=== PATIENT | male | born 1955 | race Caucasian/White ===

== ENCOUNTER 2018-10-23 21:43 | Inpatient (IN) | payer MEDICARE, BC ==
[~2018-10-23] VITALS: Ht 172.7 cm; Wt 97.5 kg
[2018-10-23] MEDS ORDERED: OMEPRAZOLE20 M1 PO (22:15)
[2018-10-23] MEDS ORDERED: FLOMAX0.4 MG PO (22:16)
[2018-10-23] MEDS ORDERED: ULTRAM50 MG PO (22:16)
[2018-10-23] MEDS ORDERED: K-TAB10 MEQ PO (22:17)
[2018-10-23] MEDS ORDERED: ULORIC40 MG PO (22:18)
[2018-10-23] MEDS ORDERED: DULCOLAX5 MG PO (22:18)
[2018-10-23] MEDS ORDERED: CENTRUM MEN'S1 EACH PO (22:19)
[2018-10-23] MEDS ORDERED: ACETAMINOPHEN500 M1 PO (22:19)
[2018-10-23] MEDS ORDERED: FIBER-LAX625 MG PO (22:20)
[2018-10-23 23:20] VITALS: BP 126/89
--- NOTE | 2018-10-23 23:24 | NUR ---
A/A DENIES NEEDS @ PRESENT,CON'T TO MONITOR.
--- NOTE | 2018-10-23 23:52 | NUR ---
MOMJOSEY CALLED AND INFORMED THERE IS NO TELEMETRY AVAILABLE FOR THIS PT.
[2018-10-24] MEDS ORDERED: TYLENOL PM1 TAB PO (00:13)
[2018-10-24] MEDS ORDERED: FUROSEMIDE20 MG PO (00:16)
[2018-10-24] MEDS ORDERED: DULCOLAX5 MG PO (01:17)
[2018-10-24] MEDS ORDERED: FIBER-LAX625 MG PO (01:17)
[2018-10-24 02:11] VITALS: BP 140/100; BMI 32.7
--- NOTE | 2018-10-24 02:50 | NUR ---
RECIEVED TO FLOOR ACCOMPANIED BY STAFF AND PTs . A&O X 4. PT REPORTS HE HAS ALS, UNABLE TO MOVE EXTREMETIES, BUT HAS LITTLE MOVEMENT IN NECK AND SHOULDERS. PT REPORTS HE IS CONTINNENT AND USES A URINAL AT HOME, IS HIS PRIMARY CARE GIVE. EDEMA TO LOWER EXTREMETIES, 3+. ABDOMEN HAS A YELLOW TINT. SCDs APPLIED, WILBERT MAT IN USE. NS INVUSING AT 125 IN RIGHT WRIST WITHOUT DIFFICULTY. DENIES PAIN AT THIS TIME, WILL CONTINUE TO MONITOR.
[2018-10-24 04:43] VITALS: BP 143/98
[2018-10-24 05:45] LABS: BASOPHILS 0.2 % (0-2); HEMOGLOBIN 14.1 g/dL (13.5-17.5); IMMATURE GRANULOCYTES 0.3 % (0-5); MCH 31.8 pg (26.0-34.0); MCHC 35.3 g/dL (31.0-37.0); MCV 90.1 fL (80.0-100.0); MEAN PLATELET VOLUME 10.2 fL (7.4-10.4); NEUTROPHILS 60.5 % (40-80); PLATELET COUNT 274 10x3/uL (130-400); RBC 4.44 10x6/uL (4.20-6.10); RDW 15.1 % (11.5-14.5)
[2018-10-24 06:05] LABS: ALBUMIN 3.2 g/dL (3.4-5.0); ALKALINE PHOSPHATASE 298 U/L (46-116); ALT (SGPT) 547 U/L (10-68); AMYLASE - SERUM 28 U/L (25-115); BILIRUBIN - TOTAL 2.42 mg/dL (0.2-1.3); CALC OSMOLALITY 278 mosm/kg (275-300); CALCIUM 8.9 mg/dL (8.5-10.1); CARBON DIOXIDE 27.9 mmol/L (21.0-32.0); CHLORIDE - SERUM 101 mmol/L (98-107); CREATININE - SERUM 0.3 mg/dL (0.6-1.3); GLUCOSE 101 mg/dL (74-106); LIPASE 133 U/L (73-393); MAGNESIUM - SERUM 1.8 mg/dL (1.8-2.4); PHOSPHOROUS 3.7 mg/dL (2.5-4.9); POTASSIUM - SERUM 3.2 mmol/L (3.5-5.1); PROTEIN - SERUM 6.9 g/dL (6.4-8.2); SODIUM 141 mmol/L (136-145); UREA NITROGEN 7 mg/dL (7-18); eGFR NON AFRICAN AMERICAN > 90 mL/min (90-120)
--- NOTE | 2018-10-24 07:42 | NUR ---
PT RESTING IN BED. NO SIGNS OF DISTRESS. IV TO RIGHT HAND PATENT NO REDNESS OR TENDERNESS. ALL FALL PRECAUTIONS IN PLACE. DENIES ANY FURTHER NEED AT THIS TIME, CALL LIGHT IN REACH. BED LOW POSITION. AT BEDSIDE.
[2018-10-24 08:46] VITALS: BP 136/98
[2018-10-24 12:44] VITALS: BMI 32.6
--- NOTE | 2018-10-24 14:22 | MORECARE ---
CASE MANAGEMENT DISCHARGE SUMMARY PATIENT: UMBERTO KEEN UNIT: [id number] ADM DATE: 10/23/18 AGE: 62 : 55 SEX: M ROOM/BED: D.2227 AUTHOR: SULMA,DOC PHYSICIAN: REFERRING PHYSICIAN: SUJIT LAZO MD DATE OF SERVICE: 10/24/18 Discharge Plan Patient Name: UMBERTO KEEN Facility: [facility]:[place] : 1955 Planned Disposition: Home Anticipated Discharge Date: Discharge Date: Expected LOS: Initial Reviewer: [email or web address] Initial Review Date: 10/24/2018 Generated: 10/24/18 3:22 pm Comments DCP- Discharge Planning Updated by [email or web address]: Gifty Richards on 10/24/18 1:[address] Patient Name: UMBERTO KEEN Admission Status: ER Accout number: [id number] Admission Date: 10-23-2018 : 1955 Admission Diagnosis: Attending: SUJIT ROBBINS Current LOS: 1 Anticipated DC Date: Planned Disposition: Home Primary Insurance: MEDICARE A & B Discharge Planning Comments: CM met with patient at bedside after explaining CM role and obtaining verbal consent. CM discussed availability / needs of home health and medical equipment. HAS MEDICAL EQUIPMENT AT HOME AND HIS AND A PERSONAL PROGRAM DIRECTOR/TRAFFIC DIRECTOR CARES FOR HIM. DENIES NEED OF ANY OTHER SERVICE AT THIS TIME.CM TO FOLLOW AND ASSIST. Communications Scientist: Gifty Richards DCPIA - Discharge Planning Initial Assessment Updated by [email or web address]: Gifty Richards on 10/24/18 2:20 pm * Is the patient Alert and Oriented? Yes * PCP SAYER * [facility] IN [place] * Preadmission Environment Home with Family * ADLs Total Dependent * Other Equipment TRILOGY, COUGH ASSIST,LIFT, WC, BED, SHOWER CHAIR. * List name and contact numbers for known caregivers / representatives who currently or will assist patient after discharge: TOBY SOLIS, * Verbal permission to speak to the caregivers and representatives has been obtained from the patient. Yes * Please name any agencies selected above. HAS PRIVATE PROGRAM DIRECTOR/TRAFFIC DIRECTOR * Additional services required to return to the preadmission environment? No * Can the patient safely return to the preadmission environment? Yes * Has this patient been hospitalized within the prior 30 days at any hospital? No Patient Name: UMBERTO KEEN Page [id number] at 1422 All edits/amendments must be made on the electronic document DICTATION DATE: 10/24/181421 INTERNET MARKETING COORDINATOR: ALIX 10/24/181421 RPT#: [id number] DC DATE: STATUS: ADM IN [facility] [address] [place] [address] END OF REPORT
[2018-10-24 15:09] LABS: ALBUMIN 3.3 g/dL (3.4-5.0); BILIRUBIN - DIRECT 1.26 mg/dL (0.00-0.30); BILIRUBIN - INDIRECT 0.78 mg/dL (0.00-1.00); BILIRUBIN - TOTAL 2.04 mg/dL (0.2-1.3); PROTEIN - SERUM 6.8 g/dL (6.4-8.2)
[2018-10-24 16:51] VITALS: BP 143/107
--- NOTE | 2018-10-24 16:54 | MORECARE ---
CASE MANAGEMENT DISCHARGE SUMMARY PATIENT: UMBERTO KEEN UNIT: [id number] ADM DATE: 10/23/18 AGE: 62 : 55 SEX: M ROOM/BED: D.2227 AUTHOR: SULMADOC PHYSICIAN: REFERRING PHYSICIAN: SUJIT LAZO MD DATE OF SERVICE: 10/24/18 Discharge Plan Patient Name: UMBERTO KEEN Facility: [facility]:[place] : 1955 Planned Disposition: Home Anticipated Discharge Date: Discharge Date: Expected LOS: Initial Reviewer: [id number] Initial Review Date: 10/24/2018 Generated: 10/24/18 5:53 pm Comments DCP- Discharge Planning Updated by [email or web address]: Gifty Richards on 10/24/18 3:[address] Patient Name: UMBERTO KEEN Admission Status: ER Accout number: [id number] Admission Date: 10-23-2018 : 1955 Admission Diagnosis: Attending: SUJIT ROBBINS Current LOS: 1 Anticipated DC Date: Planned Disposition: Home Primary Insurance: MEDICARE A & B Discharge Planning Comments: CM met with patient at bedside after explaining CM role and obtaining verbal consent. CM discussed availability / needs of home health and medical equipment. HAS MEDICAL EQUIPMENT AT HOME AND HIS AND A PERSONAL STRAIGHT SLICING MACHINE OPERATOR CARES FOR HIM. DENIES NEED OF ANY OTHER SERVICE AT THIS TIME.CM TO FOLLOW AND ASSIST. Maintenance Mechanic [place]: Gifty Richards Appended by Gifty Richards on 10/24/2018 16:46 CDT: PATIENT AND FAMILY STATES IF HE NEEDS SURGERY HE WOULD LIKE TO TRANSFER TO [facility] WHERE HIS SPECIALTY DOCTORS ARE AT. I LET THE PATIENT KNOW WE COULD TELL MORE AFTER HE HAS BEEN SEEN BY SURGERY AND SURGERY RECOMENDATIONS. I SPOKE WITH NURSE ALSO. CM WILL FOLLOW AND ASSIST. DCPIA - Discharge Planning Initial Assessment Updated by [email or web address]: Gifty Richards on 10/24/18 2:20 pm * Is the patient Alert and Oriented? Yes * PCP SAYER * [facility] IN [place] * Preadmission Environment Home with Family * ADLs Total Dependent * Other Equipment TRILOGY, COUGH ASSIST,LIFT, WC, BED, SHOWER CHAIR. * List name and contact numbers for known caregivers / representatives who currently or will assist patient after discharge: TOBY SOLIS, * Verbal permission to speak to the caregivers and representatives has been obtained from the patient. Yes * Please name any agencies selected above. HAS PRIVATE STRAIGHT SLICING MACHINE OPERATOR * Additional services required to return to the preadmission environment? No * Can the patient safely return to the preadmission environment? Yes * Has this patient been hospitalized within the prior 30 days at any hospital? No Last DP export: 10/24/18 1:22 p Patient Name: UMBERTO KEEN Page [id number] at 1654 All edits/amendments must be made on the electronic document DICTATION DATE: 10/24/181652 CRUSHER MACHINE OPERATOR: ALIX 10/24/181652 RPT#: [id number] DC DATE: STATUS: ADM IN [facility] [address] [place] [address] END OF REPORT
--- NOTE | 2018-10-24 20:00 | NUR ---
A/O WITH NO SIGNS OF ACUTE DISRESS NOTED. IV TO THE RT HAND WITH NO SWELLING OR REDNESS NOTED. TRILOGY MACHINE IN USE AND SWELLING IN FEET. DENIES PAIN OR OTHER NEEDS AT THIS TIME. CONTINUE PLAN OF CARE.
[2018-10-25 01:03] VITALS: BP 121/86
[2018-10-25 05:00] VITALS: BP 138/96
[2018-10-25 05:19] LABS: CALC OSMOLALITY 283 mosm/kg (275-300); CALCIUM 8.4 mg/dL (8.5-10.1); CARBON DIOXIDE 23.7 mmol/L (21.0-32.0); CHLORIDE - SERUM 107 mmol/L (98-107); CREATININE - SERUM 0.3 mg/dL (0.6-1.3); GLUCOSE 78 mg/dL (74-106); MAGNESIUM - SERUM 1.8 mg/dL (1.8-2.4); PHOSPHOROUS 3.9 mg/dL (2.5-4.9); POTASSIUM - SERUM 3.5 mmol/L (3.5-5.1); SODIUM 144 mmol/L (136-145); UREA NITROGEN 6 mg/dL (7-18); eGFR NON AFRICAN AMERICAN > 90 mL/min (90-120)
[2018-10-25 06:34] LABS: BASOPHILS 0.3 % (0-2); EOSINOPHILS 3.3 % (0-7); HEMATOCRIT 38.5 % (42.0-54.0); HEMOGLOBIN 13.4 g/dL (13.5-17.5); IMMATURE GRANULOCYTES 0.3 % (0-5); LYMPHOCYTES 20.9 % (15-50); MCH 31.9 pg (26.0-34.0); MCHC 34.8 g/dL (31.0-37.0); MCV 91.7 fL (80.0-100.0); MEAN PLATELET VOLUME 10.4 fL (7.4-10.4); MONOCYTES 13.1 % (2-11); NEUTROPHILS 62.1 % (40-80); PLATELET COUNT 260 10x3/uL (130-400); RDW 15.3 % (11.5-14.5); WBC 10.6 10x3/uL (4.8-10.8)
[2018-10-25 07:56] LABS: ALBUMIN 3.2 g/dL (3.4-5.0); BILIRUBIN - DIRECT 0.91 mg/dL (0.00-0.30); BILIRUBIN - INDIRECT 0.67 mg/dL (0.00-1.00); BILIRUBIN - TOTAL 1.58 mg/dL (0.2-1.3); PROTEIN - SERUM 6.6 g/dL (6.4-8.2)
--- NOTE | 2018-10-25 08:45 | NUR ---
PATIENT IN BED WITH IV INTACT. NO COMPLAINTS OR SIGNS OF DISTRESS. TRILOGY ON AND WORKING. FAMILY AT BEDSIDE. BSCDS ON AND WORKING. CALL LIGHT WITHIN REACH.
[2018-10-25 09:26] VITALS: BP 153/106
[2018-10-25 12:48] VITALS: BP 150/92
--- NOTE | 2018-10-25 18:45 | NUR ---
PATIENT IN BED WITH EYES OPEN. NO COMPLAINTS OR SIGNS OF DISTRESS. IV INTACT. FAMILY AND FRIENDS AT BEDSIDE. BSCDS ON AND WORKING. CALL LIGHT WITHIN REACH.
[2018-10-25 20:58] VITALS: BP 152/78; BP 155/96
--- NOTE | 2018-10-25 21:00 | NUR ---
A/O WITH NO SIGNS OF ACUTE DISTRESS NOTED. IV TO THE RIGHT HAND WITH NO REDNESS OR SWELLING NOTED. TRILOGY MACHINE IN USE. DENIES ANY NEEDS AT THIS TIME. AWAITING FOR BED AT [facility]. CONTINUE WITH PLAN OF CARE.
[2018-10-26 01:31] VITALS: BP 148/94
--- NOTE | 2018-10-26 05:32 | NUR ---
SLEPT THROUGH MOST OF THE NIGHT WITH NO PROLEMS. STILL AWAITING FOR TRANSFER CALL TO [facility]. CONTINUE WITH PLAN OF CARE.
[2018-10-26 05:54] VITALS: BP 148/97
[2018-10-26 06:48] LABS: BASOPHILS 0.2 % (0-2); EOSINOPHILS 2.5 % (0-7); HEMATOCRIT 37.9 % (42.0-54.0); HEMOGLOBIN 13.2 g/dL (13.5-17.5); IMMATURE GRANULOCYTES 0.2 % (0-5); LYMPHOCYTES 19.6 % (15-50); MCH 31.7 pg (26.0-34.0); MCHC 34.8 g/dL (31.0-37.0); MCV 90.9 fL (80.0-100.0); MEAN PLATELET VOLUME 10.4 fL (7.4-10.4); MONOCYTES 13.4 % (2-11); NEUTROPHILS 64.1 % (40-80); PLATELET COUNT 283 10x3/uL (130-400); RBC 4.17 10x6/uL (4.20-6.10); RDW 15.2 % (11.5-14.5); WBC 9.1 10x3/uL (4.8-10.8)
[2018-10-26 07:09] LABS: CALCIUM 8.7 mg/dL (8.5-10.1); CARBON DIOXIDE 22.9 mmol/L (21.0-32.0); CHLORIDE - SERUM 103 mmol/L (98-107); GLUCOSE 71 mg/dL (74-106); MAGNESIUM - SERUM 1.8 mg/dL (1.8-2.4); POTASSIUM - SERUM 3.1 mmol/L (3.5-5.1); SODIUM 141 mmol/L (136-145)
[2018-10-26 07:10] LABS: CALC OSMOLALITY 275 mosm/kg (275-300); CREATININE - SERUM 0.2 mg/dL (0.6-1.3); PHOSPHOROUS 2.7 mg/dL (2.5-4.9); UREA NITROGEN 3 mg/dL (7-18); eGFR NON AFRICAN AMERICAN > 90 mL/min (90-120)
--- NOTE | 2018-10-26 08:30 | NUR ---
PATIENT IN BED WITH NO COMPLAINTS OR SIGNS OF DISTRESS. FAMILY AT BEDSIDE. IV INTACT. ASSESSMENT COMPLETE, VS STABLE. CALL LIGHT WITHIN REACH.
[2018-10-26 09:28] VITALS: BP 145/98
[2018-10-26 10:25] LABS: BILIRUBIN - DIRECT 4.66 mg/dL (0.00-0.30); BILIRUBIN - INDIRECT 1.44 mg/dL (0.00-1.00); BILIRUBIN - TOTAL 6.1 mg/dL (0.2-1.3)
--- NOTE | 2018-10-26 12:30 | NUR ---
PATIENT IN BED WITH IV INTACT. NO COMPLAINTS OR SIGNS OF DISTRESS. FAMILY AT BEDSIDE. CALL LIGHT WITHIN REACH.
[2018-10-26 12:32] VITALS: BP 141/97
--- NOTE | 2018-10-26 12:36 | NUR ---
Nutrition follow-up: diet: low residue PO intake ~65% of last 2 meals Labs reviewed Wt: 214# RDN following.
[2018-10-26 13:34] LABS: ALKALINE PHOSPHATASE 295 U/L (46-116); ALT (SGPT) 457 U/L (10-68); BILIRUBIN - TOTAL 6.02 mg/dL (0.2-1.3); PROTEIN - SERUM 7.1 g/dL (6.4-8.2)
--- NOTE | 2018-10-26 14:50 | MORECARE ---
CASE MANAGEMENT DISCHARGE SUMMARY PATIENT: UMBERTO KEEN UNIT: [id number] ADM DATE: 10/23/18 AGE: 62 : 55 SEX: M ROOM/BED: D.2227 AUTHOR: SULMADOC PHYSICIAN: REFERRING PHYSICIAN: SUJIT LAZO MD DATE OF SERVICE: 10/26/18 Discharge Plan Patient Name: UMBERTO KEEN Facility: [facility]:[place] : 1955 Planned Disposition: Home Anticipated Discharge Date: Discharge Date: Expected LOS: Initial Reviewer: [email or web address] Initial Review Date: 10/24/2018 Generated: 10/26/18 3:49 pm Comments DCP- Discharge Planning Updated by [email or web address]: Gifty Richards on 10/26/18 1:[address] Patient Name: UMBERTO KEEN Admission Status: ER Accout number: [id number] Admission Date: 10-23-2018 : 1955 Admission Diagnosis: Attending: SUJIT ROBBINS Current LOS: 3 Anticipated DC Date: Planned Disposition: Home Primary Insurance: MEDICARE A & B Discharge Planning Comments: ACCEPTED AT [facility], WAITING FOR BED. Campus Receptionist: Gifty Richards DCP- Discharge Planning Updated by [email or web address]: Gifty Richards on 10/24/18 3:[address] Patient Name: UMBERTO KEEN Admission Status: ER Accout number: [id number] Admission Date: 10-23-2018 : 1955 Admission Diagnosis: Attending: SUJIT ROBBINS Current LOS: 1 Anticipated DC Date: Planned Disposition: Home Primary Insurance: MEDICARE A & B Discharge Planning Comments: CM met with patient at bedside after explaining CM role and obtaining verbal consent. CM discussed availability / needs of home health and medical equipment. HAS MEDICAL EQUIPMENT AT HOME AND HIS AND A PERSONAL HEALTH ANALYST CARES FOR HIM. DENIES NEED OF ANY OTHER SERVICE AT THIS TIME.CM TO FOLLOW AND ASSIST. Campus Receptionist: Gifty Richards Appended by Gifty Richards on 10/24/2018 16:46 CDT: PATIENT AND FAMILY STATES IF HE NEEDS SURGERY HE WOULD LIKE TO TRANSFER TO [facility] WHERE HIS SPECIALTY DOCTORS ARE AT. I LET THE PATIENT KNOW WE COULD TELL MORE AFTER HE HAS BEEN SEEN BY SURGERY AND SURGERY RECOMENDATIONS. I SPOKE WITH NURSE ALSO. CM WILL FOLLOW AND ASSIST. DCPIA - Discharge Planning Initial Assessment Updated by [email or web address]: Gifty Richards on 10/24/18 2:20 pm * Is the patient Alert and Oriented? Yes * PCP SAYER * [facility]acy [facility] IN [place] * Preadmission Environment Home with Family * ADLs Total Dependent * Other Equipment TRILOGY, COUGH ASSIST,LIFT, WC, BED, SHOWER CHAIR. * List name and contact numbers for known caregivers / representatives who currently or will assist patient after discharge: WILL, TOBY, * Verbal permission to speak to the caregivers and representatives has been obtained from the patient. Yes * Please name any agencies selected above. HAS PRIVATE HEALTH ANALYST * Additional services required to return to the preadmission environment? No * Can the patient safely return to the preadmission environment? Yes * Has this patient been hospitalized within the prior 30 days at any hospital? No Last DP export: 10/24/18 3:54 p Patient Name: UMBERTO KEEN Page [id number] at 1450 All edits/amendments must be made on the electronic document DICTATION DATE: 10/26/181448 CONSULTANT EDUCATION: ALIX 10/26/181448 RPT#: [id number] DC DATE: STATUS: ADM IN [facility] [address] [place] [address] END OF REPORT
[2018-10-26 15:17] LABS: ALBUMIN 3.2 g/dL (3.4-5.0); ALKALINE PHOSPHATASE 321 U/L (46-116); ALT (SGPT) 452 U/L (10-68); BILIRUBIN - TOTAL 3.48 mg/dL (0.2-1.3); CALC OSMOLALITY 279 mosm/kg (275-300); CALCIUM 8.4 mg/dL (8.5-10.1); CARBON DIOXIDE 22.3 mmol/L (21.0-32.0); CHLORIDE - SERUM 104 mmol/L (98-107); GLUCOSE 104 mg/dL (74-106); POTASSIUM - SERUM 3.3 mmol/L (3.5-5.1); PROTEIN - SERUM 6.9 g/dL (6.4-8.2); SODIUM 142 mmol/L (136-145); UREA NITROGEN 3 mg/dL (7-18)
[2018-10-26 15:24] LABS: CREATININE - SERUM 0.3 mg/dL (0.6-1.3); eGFR NON AFRICAN AMERICAN > 90 mL/min (90-120)
--- NOTE | 2018-10-26 15:30 | NUR ---
PATIENT IN BED WITH IV INTACT. TRIOLOGY ON. FAMILY AT BEDSIDE. BSCDS ON AND WORKING. CALL LIGHT WITHIN REACH.
--- NOTE | 2018-10-26 18:25 | NUR ---
PATIENT IN BED WITH IV INTACT. NO COMPLAINTS OR SIGNS OF DISTRESS. FAMILY AT BEDSIDE. CALL LIGHT WITHIN REACH.
[2018-10-26 20:10] VITALS: BP 148/100
--- NOTE | 2018-10-27 | NUR ---
PT UNCOMFORTABLE. PULLE PT UP IN BED AND REPOSITIONED. TURNED AND SUPPORTED WITH PILLOWS. CHANGED PAD UNDER PT. TRILOGY ON. NO OTHER NEEDS. AT BEDSIDE. WILL CONTINUE TO MONITOR.
[2018-10-27 01:22] VITALS: BP 144/96; BP 148/100
[2018-10-27 04:59] VITALS: BP 147/100
[2018-10-27 06:27] LABS: BASOPHILS 0.2 % (0-2); EOSINOPHILS 3.2 % (0-7); HEMATOCRIT 37.3 % (42.0-54.0); HEMOGLOBIN 13.1 g/dL (13.5-17.5); IMMATURE GRANULOCYTES 0.2 % (0-5); LYMPHOCYTES 21.4 % (15-50); MCH 31.7 pg (26.0-34.0); MCHC 35.1 g/dL (31.0-37.0); MCV 90.3 fL (80.0-100.0); MEAN PLATELET VOLUME 9.9 fL (7.4-10.4); MONOCYTES 11.3 % (2-11); NEUTROPHILS 63.7 % (40-80); PLATELET COUNT 271 10x3/uL (130-400); RBC 4.13 10x6/uL (4.20-6.10); RDW 15.3 % (11.5-14.5)
[2018-10-27 06:49] LABS: ALBUMIN 2.9 g/dL (3.4-5.0); ALKALINE PHOSPHATASE 294 U/L (46-116); ALT (SGPT) 391 U/L (10-68); BILIRUBIN - TOTAL 2.35 mg/dL (0.2-1.3); CALC OSMOLALITY 278 mosm/kg (275-300); CALCIUM 8.5 mg/dL (8.5-10.1); CARBON DIOXIDE 24.4 mmol/L (21.0-32.0); CHLORIDE - SERUM 106 mmol/L (98-107); CREATININE - SERUM 0.3 mg/dL (0.6-1.3); GLUCOSE 90 mg/dL (74-106); MAGNESIUM - SERUM 1.8 mg/dL (1.8-2.4); PHOSPHOROUS 2.7 mg/dL (2.5-4.9); POTASSIUM - SERUM 3.1 mmol/L (3.5-5.1); SODIUM 142 mmol/L (136-145); UREA NITROGEN 2 mg/dL (7-18); eGFR NON AFRICAN AMERICAN > 90 mL/min (90-120)
--- NOTE | 2018-10-27 09:14 | NUR ---
PT ALERT X 4. BREATH SOUNDS CLEAR BILAT, TRILOGY IN USE. TELEMETRY IN PLACE. IV TO RIGHT HAND, PATENT, DRESSING CDI. +3 EDEMA TO BLE. PT REPORTING NO PAIN AT THIS TIME. FAMILY AT BEDSIDE. BED LOW, CALL LIGHT IN REACH. NO OTHER NEEDS AT THIS TIME.
[2018-10-27] MEDS ORDERED: DOXYCYCLINE HY100 M2 PO (11:29)
[2018-10-27] MEDS ORDERED: FLORAJEN3 CAPS460 MG PO (11:29)
--- NOTE | 2018-10-27 12:00 | NUR ---
DISCHARGE PAPERWORK SIGNED, ALL QUESTIONS ANSWERED. IV TO RIGHT HAND DC'D, TIP INTACT.
[2018-10-27 12:30] VITALS: BP 141/90
--- NOTE | 2018-10-29 12:07 | MORECARE ---
CASE MANAGEMENT DISCHARGE SUMMARY PATIENT: UMBERTO KEEN UNIT: [id number] ADM DATE: 10/23/18 AGE: 62 : 55 SEX: M ROOM/BED: D.2227 AUTHOR: SUMLADOC PHYSICIAN: REFERRING PHYSICIAN: SUJIT LAZO MD DATE OF SERVICE: 10/29/18 Discharge Plan Patient Name: UMBERTO KEEN Facility: [facility]:[place] : 1955 Planned Disposition: Home Anticipated Discharge Date: Discharge Date: 10/27/2018 Expected LOS: Initial Reviewer: [email or web address] Initial Review Date: 10/24/2018 Generated: 10/29/18 1:07 pm Comments DCP- Discharge Planning Updated by [email or web address]: Gifty Richards on 10/26/18 1:[address] Patient Name: UMBERTO KEEN Admission Status: ER Accout number: [id number] Admission Date: 10-23-2018 : 1955 Admission Diagnosis: Attending: SUJIT ROBBINS Current LOS: 3 Anticipated DC Date: Planned Disposition: Home Primary Insurance: MEDICARE A & B Discharge Planning Comments: ACCEPTED AT [facility], WAITING FOR BED. Transit Mechanic: Gifty Richards DCP- Discharge Planning Updated by [email or web address]: Gifty Richards on 10/24/18 3:[address] Patient Name: UMBERTO KEEN Admission Status: ER Accout number: [id number] Admission Date: 10-23-2018 : 1955 Admission Diagnosis: Attending: SUJIT ROBBINS Current LOS: 1 Anticipated DC Date: Planned Disposition: Home Primary Insurance: MEDICARE A & B Discharge Planning Comments: CM met with patient at bedside after explaining CM role and obtaining verbal consent. CM discussed availability / needs of home health and medical equipment. HAS MEDICAL EQUIPMENT AT HOME AND HIS AND A PERSONAL TANK FURNACE OPERATOR CARES FOR HIM. DENIES NEED OF ANY OTHER SERVICE AT THIS TIME.CM TO FOLLOW AND ASSIST. Transit Mechanic: Gifty Richards Appended by Gifty Richards on 10/24/2018 16:46 CDT: PATIENT AND FAMILY STATES IF HE NEEDS SURGERY HE WOULD LIKE TO TRANSFER TO [facility] WHERE HIS SPECIALTY DOCTORS ARE AT. I LET THE PATIENT KNOW WE COULD TELL MORE AFTER HE HAS BEEN SEEN BY SURGERY AND SURGERY RECOMENDATIONS. I SPOKE WITH NURSE ALSO. CM WILL FOLLOW AND ASSIST. DCPIA - Discharge Planning Initial Assessment Updated by [id number]: Gifty Richards on 10/24/18 2:20 pm * Is the patient Alert and Oriented? Yes * PCP SAYER * Pharmacy [facility] IN [place] * Preadmission Environment Home with Family * ADLs Total Dependent * Other Equipment TRILOGY, COUGH ASSIST,LIFT, WC, BED, SHOWER CHAIR. * List name and contact numbers for known caregivers / representatives who currently or will assist patient after discharge: TOBY SOLIS, * Verbal permission to speak to the caregivers and representatives has been obtained from the patient. Yes * Please name any agencies selected above. HAS PRIVATE TANK FURNACE OPERATOR * Additional services required to return to the preadmission environment? No * Can the patient safely return to the preadmission environment? Yes * Has this patient been hospitalized within the prior 30 days at any hospital? No Last DP export: 10/26/18 1:50 p Patient Name: UMBERTO KEEN Page [phone] at 1207 All edits/amendments must be made on the electronic document DICTATION DATE: 10/29/181206 DIAL MAKER: ALIX 10/29/181206 RPT#: [id number] DC DATE:10/27/18 STATUS: DIS IN [facility] [address] [place] [address] END OF REPORT
[2018-11-07 15:38] VITALS: Ht 172.7 cm; Wt 97.5 kg
== END 2018-10-27 12:00 | disposition home or self-care (01) | DRG 444 ==
LOC: D.ER 21:43 → D.MS 22:43
PROVIDERS: Emergency Medicine; Family Medicine; Internal Medicine Gastroenterology; ADMIT Family Medicine; ATTEND Family Medicine
DX: K81.0 Acute cholecystitis (principal); R53.2 Functional quadriplegia; G12.21 Amyotrophic lateral sclerosis; E86.0 Dehydration; G47.33 Obstructive sleep apnea (adult) (pediatric); N40.0 Benign prostatic hyperplasia without lower urinary tract symptoms; E66.9 Obesity, unspecified; Z68.32 Body mass index [BMI] 32.0-32.9, adult; R47.02 Dysphasia